=== PATIENT | male | born 1975 | race Caucasian/White ===

== ENCOUNTER 2016-10-07 09:19 | Emergency (ER) | payer BC ==
[2016-10-07 09:31] VITALS: BP 90/65; PULSE 80; RESP 18; TEMP 98.8; O2SAT 94
--- NOTE | 2016-10-07 10:45 | PD ---
HPI Chief Complaint: ENT Complaint Time Seen by Provider: 10:44 Travel History International Travel<30 days: No Contact w/Intl Traveler<30days: No Traveled to known affect area: No History of Present Illness HPI 40-year-old male with history of no sniff can past medical issues, presents to the ER today for 2 days history of sore throat, coughing, subjective fevers, malaise. He does not know any sick contacts. He denies any shortness of breath , vomiting, or any other issues. Modifying Factors: None Associated Signs & Symptoms: Cough, sore throat, fevers Risk Factors: None PFSH Social History Alcohol Use: No Tobacco Use: No Substance Use: No Allergies-Medications (Allergen,Severity, Reaction): Coded Allergies: No Known Allergies (Unverified , 10/07/16) Reported Meds & Prescriptions Reported Meds & Active Scripts Active No Active Prescriptions or Reported Medications Review of Systems Except as stated in HPI: all other systems reviewed are Neg Physical Exam Narrative GENERAL: Well-developed middle age white male patient currently in mild distress. Awake and oriented 3. SKIN: Focused skin assessment warm/dry. HEAD: Atraumatic. Normocephalic. EYES: Pupils equal and round. No scleral icterus. No injection or drainage. ENT: Mucosa pink and moist. Notable erythema with no exudates. Mild uvular edema. No uvular, palatal, or tonsillar deviation. Airway patent. NECK: Trachea midline. No JVD. CARDIOVASCULAR: Regular rate and rhythm. No murmur appreciated. RESPIRATORY: No accessory muscle use. Clear to auscultation. Breath sounds equal bilaterally. GASTROINTESTINAL: Abdomen soft, non-tender, nondistended. Hepatic and splenic margins not palpable. MUSCULOSKELETAL: No obvious deformities. No clubbing. No cyanosis. No edema. NEUROLOGICAL: Awake and alert. No obvious cranial nerve deficits. Motor grossly within normal limits. Normal speech. PSYCHIATRIC: Appropriate mood and affect; insight and judgment normal. Data Data Last Documented VS Vital Signs Date Time Temp Pulse Resp B/P Pulse Ox O2 Delivery O2 Flow Rate FiO2 10/07/16 09:31 98.8 80 18 90/65 94 Orders Group A Rapid Strep Screen (10/07/16 10:28) Strep Culture (Group A) (10/07/16 10:30) MDM Medical Decision Making Medical Screen Exam Complete: Yes Emergency Medical Condition: Yes Medical Record Reviewed: Yes Differential Diagnosis Strep pharyngitis versus viral syndrome versus bronchitis Narrative Course Based on exam, patient is given pen VK with follow-up to primary care physician. Saltwater gargles. Return for worsening in symptoms as needed. The plan has been discussed with him and he states understanding. Diagnosis Primary Impression: Pharyngitis Med/Other Pt SpecificInfo: Prescription(s) given Scripts Benzocaine-Menthol Lozenge (Cepacol Sore Throat Lozenge)15-3.6 Mg Lozg1 Lozenge PO Q2H PRN (SORE THROAT) #1 CONTAINER Ref 1 Prov:Sumaya Winkler MD 10/07/16 Ibuprofen (Motrin Ib)200 Mg [id number] Mg PO QID PRN (PAIN SCALE 1 TO 10) #20 Prov:Sumaya Winkler MD 10/07/16 Penicillin V Potassium 500 Mg Pat829 Mg PO Q6H 7 Days Ref 0 Prov:Sumaya Winkler MD 10/07/16 Disposition: 01 DISCHARGE HOME Condition: Stable Sumaya Winkler MD Oct 07, 2016 10:45
[2016-10-07] MEDS ORDERED: PENI500T PO (10:59)
[2016-10-07] MEDS ORDERED: BENZ1LOZ5 PO (10:59)
[2016-10-07] MEDS ORDERED: IBUP-1129 PO (10:59)
== END 2016-10-07 11:10 | disposition home or self-care (01) ==
LOC: PHEFT 09:19
DX: J02.9 Acute pharyngitis, unspecified (principal)
CPT/HCPCS: 87081; 87880; 99284